=== PATIENT | male | born 1940 | race Caucasian/White ===

== ENCOUNTER 2017-04-25 12:48 | Inpatient (IN) | payer OTHER ==
[2017-04-25 14:11] LABS: ADD MAN DIFF? NO
[2017-04-25 14:21] LABS: BASOPHILS % 0.2 % (0.0-2.0); HEMATOCRIT 53.4 % (42.0-52.0); HEMOGLOBIN 19.5 g/dl (14.0-18.0); LYMPHOCYTES # 1.4 10^3/ul (0.8-2.9); LYMPHOCYTES % 9.6 % (15.0-51.0); MEAN CORPUSCULAR HEMOGLOBIN 32.7 pg (29.0-33.0); MEAN CORPUSCULAR HGB CONC 36.5 g/dl (32.0-37.0); MEAN CORPUSCULAR VOLUME 89.6 fl (82.0-101.0); MEAN PLATELET VOLUME 11.3 fl (7.4-10.4); MONOCYTE # 1.1 10^3/ul (0.3-0.9); MONOCYTES % 7.3 % (0.0-11.0); NEUTROPHILS % 82.6 % (39.0-77.0); PLATELET COUNT 282 10^3/UL (140-415); RED BLOOD COUNT 5.96 10^6/ul (4.70-6.10); RED CELL DISTRIBUTION WIDTH 13.4 % (11.5-14.5)
[2017-04-25 14:21] LABS: WHITE BLOOD COUNT 14.5 10^3/ul (4.8-10.8)
[2017-04-25 14:24] LABS: AADO2 Arterial 27.2 mmHg (7.0-24.0); Allen Test ACCEPTAB; Arterial Base Excess -2.5 mmol/L (-3.0-3); Arterial Blood Gas Oxygen Sat 94.4 mmHG (95.0-100.0); Arterial COHb 0.2 % (0.0-3.0); Arterial Fraction of Oxyhgb 93.8 % (93.0-99.0); Arterial HCO3 22.8 mmol/L (22.0-26.0); Arterial MetHb 0.4 % (0.0-1.5); Arterial pCO2 41.5 mmhg (35-45); MODE ROOM AIR; Site Right Radial
[2017-04-25] MEDS: SODIUM CHLORIDE 0.9% 1L BAG IV* (14:24)
[2017-04-25 14:41] LABS: PROTIME 12.2 Sec (11.9-14.9)
[2017-04-25] MEDS: IPRATROPIUM (NEB) 0.5 MG/2.5 ML AMP HHN (14:41)
[2017-04-25] MEDS: LEVALBUTEROL (NEB) 1.25 MG/0.5 ML AMP HHN (14:41)
[2017-04-25 14:44] LABS: ALANINE AMINOTRANSFERASE 78 IU/L (13-69); ALBUMIN 5.3 g/dl (3.3-4.9); ALBUMIN/GLOBULIN RATIO 1.47; ALKALINE PHOSPHATASE 109 IU/L (42-121); ANION GAP 30 (8-16); ASPARTATE AMINO TRANSFERASE 80 IU/L (15-46); BILIRUBIN,INDIRECT 0.3 mg/dl (0-1.1); BILIRUBIN,TOTAL 0.3 mg/dl (0.2-1.3); BLOOD UREA NITROGEN 61 mg/dl (7-20); CALCIUM 10.4 mg/dl (8.4-10.2); CARBON DIOXIDE 21 mmol/L (21-31); CHLORIDE 100 mmol/L (97-110); CREATININE 0.99 mg/dl (0.61-1.24); GLUCOSE 154 mg/dl (70-220); POTASSIUM 4.2 mmol/L (3.5-5.1); SODIUM 147 mmol/L (135-144); TOTAL PROTEIN 8.9 g/dl (6.1-8.1)
[2017-04-25 14:55] LABS: TROPONIN-I 0.015 ng/ml (0.00-0.12)
[2017-04-25 15:09] LABS: LACTIC ACID 2.1 mmol/L (0.5-2.0)
[2017-04-25 16:24] LABS: URINE BLOOD (Dip) POC 3+ (NEGATIVE); URINE GLUCOSE (Dip) POC Negative (NEGATIVE); URINE KETONES (Dip) POC 3+ (NEGATIVE); URINE LEUKOCYTE EST (Dip) POC Negative (NEGATIVE); URINE NITRITE (Dip) POC Negative (NEGATIVE); URINE TOTAL PROTEIN POC 2+ (NEGATIVE)
[2017-04-25 16:24] LABS: URINE PH (Dip) POC 5.5 (5.0-8.5)
[2017-04-25 16:57] LABS: LACTIC ACID 1.7 mmol/L (0.5-2.0)
[2017-04-25 17:03] LABS: ADD UMIC YES; UR ASCORBIC ACID NEGATIVE (NEGATIVE); UR BACTERIA FEW /HPF (NONE SEEN); UR BILIRUBIN (Dip) NEGATIVE (NEGATIVE); UR BLOOD (Dip) 3+ mg/dL (NEGATIVE); UR CLARITY CLEAR (CLEAR); UR COLOR YELLOW (YELLOW); UR GLUCOSE (Dip) NEGATIVE (NEGATIVE); UR KETONES (Dip) 2+ mg/dL (NEGATIVE); UR LEUKOCYTE ESTERASE (Dip) NEGATIVE Leu/ul (NEGATIVE); UR MUCUS FEW /HPF (NONE SEEN); UR NITRITE (Dip) NEGATIVE (NEGATIVE); UR RBC 79 /HPF (0-5); UR SPECIFIC GRAVITY (Dip) 1.021 (1.003-1.030); UR TOTAL PROTEIN (Dip) 2+ mg/dl (NEGATIVE); UR UROBILINOGEN (Dip) NEGATIVE (NEGATIVE); UR WBC 2 /HPF (0-5)
[2017-04-25] MEDS: SOD CHLORIDE 0.9% 100 ML (18:09)
[2017-04-25] MEDS: IOHEXOL 100 ML (18:09)
[2017-04-25] MEDS ORDERED: SOD CHLORIDE 0.45% 1,000 ML IV (19:56)
[2017-04-25] MEDS ORDERED: SOD CHLORIDE 0.9% 2,170 ML IV (20:00)
[2017-04-25] MEDS ORDERED: NACL 0.9% 3 ML SYG IV ×2 (20:00→23:30)
[2017-04-25] MEDS ORDERED: ACETAMINOPHEN 325 MG TAB PO ×2 (20:00→20:30)
[2017-04-25] MEDS ORDERED: ONDANSETRON 4 MG INJ IV ×2 (20:00→20:30)
[2017-04-25 20:15] LABS: CREATINE KINASE 417 IU/L (23-200)
[2017-04-25 20:28] LABS: CK INDEX 6.9; TROPONIN-I 0.023 ng/ml (0.00-0.12)
[2017-04-25] MEDS: LACTATED RINGER'S 500 ML IV (20:30)
[2017-04-25] MEDS: FAMOTIDINE 20 MG INJ IV (20:33)
[2017-04-25] MEDS: CEFEPIME 2GM/50 ML (PMX) 50 ML IVPB (20:35)
[2017-04-25 20:45] LABS: GAMMA GLUTAMYL TRANSPEPTIDASE 18 IU/L (0-50)
[2017-04-25] MEDS: TAMSULOSIN (SR) 0.4 MG CAP PO (20:53)
[2017-04-25] MEDS ORDERED: LORAZEPAM 2 MG INJ IV (21:00)
[2017-04-25] MEDS: MONTELUKAST 10 MG TAB PO (22:44)
[2017-04-25] MEDS: SALMETEROL/FLUTICASONE 250/50 INHA INH (22:44)
[2017-04-25] MEDS: QUETIAPINE 25 MG TAB PO (22:44)
[2017-04-25] MEDS: PIPER-TAZO 2.25 GM (PMX) 50 ML IVPB (23:34)
[2017-04-26] MEDS: AZITHROMYCIN 500MG/NS (PMX) 250 ML IVPB (00:34)
[2017-04-26 04:24] LABS: CREATINE KINASE 203 IU/L (23-200)
[2017-04-26 04:36] LABS: CK INDEX 7.2; TROPONIN-I 0.017 ng/ml (0.00-0.12)
[2017-04-26] MEDS: PIPER-TAZO 2.25 GM (PMX) 50 ML IVPB ×4 (06:08→21:50)
[2017-04-26 06:21] LABS: ADD MAN DIFF? NO
[2017-04-26 06:29] LABS: WHITE BLOOD COUNT 8.8 10^3/ul (4.8-10.8)
[2017-04-26 06:29] LABS: BASOPHILS % 0.2 % (0.0-2.0); EOSINOPHILS % 0.5 % (0.0-7.0); HEMATOCRIT 41.6 % (42.0-52.0); HEMOGLOBIN 14.8 g/dl (14.0-18.0); LYMPHOCYTES # 1.6 10^3/ul (0.8-2.9); LYMPHOCYTES % 17.8 % (15.0-51.0); MEAN CORPUSCULAR HEMOGLOBIN 31.9 pg (29.0-33.0); MEAN CORPUSCULAR HGB CONC 35.6 g/dl (32.0-37.0); MEAN CORPUSCULAR VOLUME 89.7 fl (82.0-101.0); MEAN PLATELET VOLUME 10.7 fl (7.4-10.4); MONOCYTE # 1.1 10^3/ul (0.3-0.9); MONOCYTES % 12.6 % (0.0-11.0); NEUTROPHILS % 68.7 % (39.0-77.0); PLATELET COUNT 183 10^3/UL (140-415); RED BLOOD COUNT 4.64 10^6/ul (4.70-6.10); RED CELL DISTRIBUTION WIDTH 13.1 % (11.5-14.5)
[2017-04-26 07:10] LABS: ALANINE AMINOTRANSFERASE 57 IU/L (13-69); ALBUMIN 3.6 g/dl (3.3-4.9); ALBUMIN/GLOBULIN RATIO 1.38; ALKALINE PHOSPHATASE 70 IU/L (42-121); ANION GAP 18 (8-16); ASPARTATE AMINO TRANSFERASE 54 IU/L (15-46); BILIRUBIN,INDIRECT 0.5 mg/dl (0-1.1); BILIRUBIN,TOTAL 0.5 mg/dl (0.2-1.3); BLOOD UREA NITROGEN 31 mg/dl (7-20); CALCIUM 9.1 mg/dl (8.4-10.2); CARBON DIOXIDE 27 mmol/L (21-31); CHLORIDE 108 mmol/L (97-110); CHOL/HDL RATIO 5.6 RATIO; CHOLESTEROL 209 mg/dl (100-200); CREATININE 0.69 mg/dl (0.61-1.24); GLUCOSE 92 mg/dl (70-220); HDL CHOLESTEROL 37 mg/dl (31-75); LDL CHOLESTEROL,CALCULATED 150 mg/dl; MAGNESIUM 1.6 mg/dl (1.7-2.5); POTASSIUM 3.5 mmol/L (3.5-5.1); SODIUM 149 mmol/L (135-144); TOTAL PROTEIN 6.2 g/dl (6.1-8.1); TRIGLYCERIDES 108 mg/dl (0-149)
[2017-04-26] MEDS: FINASTERIDE 5 MG TAB PO (08:24)
[2017-04-26] MEDS: QUETIAPINE 25 MG TAB PO ×2 (08:24→21:48)
[2017-04-26] MEDS: MULTIVITAMINS 10 ML, THIAMINE 100 MG, FOLIC ACID 1 MG in SOD CHLORIDE 0.9% 1,000 ML IVPB (08:24)
[2017-04-26] MEDS: SALMETEROL/FLUTICASONE 250/50 INHA INH ×2 (08:24→21:49)
[2017-04-26 08:25] LABS: LACTIC ACID 1.4 mmol/L (0.5-2.0)
[2017-04-26] MEDS: FAMOTIDINE 20 MG INJ IV ×2 (08:31→21:48)
[2017-04-26] MEDS: TAMSULOSIN (SR) 0.4 MG CAP PO ×2 (08:36→21:48)
[2017-04-26] MEDS: POTASSIUM CHLORIDE (SR) 20 MEQ TAB PO (15:58)
[2017-04-26] MEDS: MAGNESIUM SULFATE 4 GM/100 ML 100 ML IVPB (20:16)
[2017-04-26] MEDS: ENOXAPARIN 30 MG/0.3 ML SYG SC (21:52)
[2017-04-26] MEDS: MONTELUKAST 10 MG TAB PO (22:36)
[2017-04-27] MEDS: PIPER-TAZO 2.25 GM (PMX) 50 ML IVPB ×3 (05:16→21:43)
[2017-04-27] MEDS: ALBUTEROL/IPRATROPIUM (NEB) 3 ML AMP HHN (06:01)
[2017-04-27] MEDS: FAMOTIDINE 20 MG INJ IV ×2 (09:37→21:42)
[2017-04-27] MEDS: QUETIAPINE 25 MG TAB PO ×2 (09:37→21:42)
[2017-04-27] MEDS: TAMSULOSIN (SR) 0.4 MG CAP PO ×2 (09:37→21:42)
[2017-04-27] MEDS: FINASTERIDE 5 MG TAB PO (09:37)
[2017-04-27] MEDS: SALMETEROL/FLUTICASONE 250/50 INHA INH ×2 (09:38→21:42)
[2017-04-27] MEDS: ENOXAPARIN 30 MG/0.3 ML SYG SC (09:47)
[2017-04-27 10:05] LABS: ADD MAN DIFF? NO
[2017-04-27 10:13] LABS: WHITE BLOOD COUNT 5.5 10^3/ul (4.8-10.8)
[2017-04-27 10:13] LABS: BASOPHILS % 0.4 % (0.0-2.0); EOSINOPHILS # 0.1 10^3/ul (0.0-0.5); EOSINOPHILS % 1.3 % (0.0-7.0); HEMATOCRIT 36.8 % (42.0-52.0); HEMOGLOBIN 13.2 g/dl (14.0-18.0); LYMPHOCYTES # 1.3 10^3/ul (0.8-2.9); LYMPHOCYTES % 24.5 % (15.0-51.0); MEAN CORPUSCULAR HEMOGLOBIN 32.7 pg (29.0-33.0); MEAN CORPUSCULAR HGB CONC 35.9 g/dl (32.0-37.0); MEAN CORPUSCULAR VOLUME 91.1 fl (82.0-101.0); MEAN PLATELET VOLUME 11.5 fl (7.4-10.4); MONOCYTE # 0.6 10^3/ul (0.3-0.9); MONOCYTES % 10.6 % (0.0-11.0); NEUTROPHIL # 3.5 10^3/ul (1.6-7.5); PLATELET COUNT 141 10^3/UL (140-415); RED BLOOD COUNT 4.04 10^6/ul (4.70-6.10); RED CELL DISTRIBUTION WIDTH 13.2 % (11.5-14.5)
[2017-04-27 10:56] LABS: ANION GAP 15 (8-16); BLOOD UREA NITROGEN 14 mg/dl (7-20); CALCIUM 8.3 mg/dl (8.4-10.2); CARBON DIOXIDE 30 mmol/L (21-31); CHLORIDE 103 mmol/L (97-110); CREATININE 0.57 mg/dl (0.61-1.24); GLUCOSE 85 mg/dl (70-220); MAGNESIUM 1.8 mg/dl (1.7-2.5); SODIUM 145 mmol/L (135-144)
[2017-04-27] MEDS: MULTIVITAMINS 10 ML, THIAMINE 100 MG, FOLIC ACID 1 MG in SOD CHLORIDE 0.9% 1,000 ML IVPB (11:40)
[2017-04-27] MEDS: POTASSIUM CHLORIDE (SR) 20 MEQ TAB PO (15:12)
[2017-04-27] MEDS: MAGNESIUM OXIDE 400 MG TAB PO (17:01)
[2017-04-27] MEDS: MONTELUKAST 10 MG TAB PO (21:42)
[2017-04-28] MEDS: AMLODIPINE 5 MG TAB PO ×3 (01:00→21:35)
[2017-04-28] MEDS: QUETIAPINE 25 MG TAB PO ×3 (01:00→21:35)
[2017-04-28] MEDS: MAGNESIUM OXIDE 400 MG TAB PO ×3 (01:01→21:35)
[2017-04-28] MEDS: PIPER-TAZO 2.25 GM (PMX) 50 ML IVPB ×3 (05:15→21:38)
[2017-04-28] MEDS: SALMETEROL/FLUTICASONE 250/50 INHA INH (08:46)
[2017-04-28] MEDS: TAMSULOSIN (SR) 0.4 MG CAP PO ×2 (08:46→21:35)
[2017-04-28] MEDS: ENOXAPARIN 30 MG/0.3 ML SYG SC (08:48)
[2017-04-28 09:18] LABS: ADD MAN DIFF? NO
[2017-04-28 09:29] LABS: WHITE BLOOD COUNT 5.9 10^3/ul (4.8-10.8)
[2017-04-28 09:29] LABS: BASOPHILS % 0.5 % (0.0-2.0); EOSINOPHILS # 0.1 10^3/ul (0.0-0.5); EOSINOPHILS % 2.2 % (0.0-7.0); HEMATOCRIT 38.4 % (42.0-52.0); HEMOGLOBIN 13.6 g/dl (14.0-18.0); LYMPHOCYTES # 1.4 10^3/ul (0.8-2.9); LYMPHOCYTES % 24.4 % (15.0-51.0); MEAN CORPUSCULAR HEMOGLOBIN 32.2 pg (29.0-33.0); MEAN CORPUSCULAR HGB CONC 35.4 g/dl (32.0-37.0); MEAN CORPUSCULAR VOLUME 90.8 fl (82.0-101.0); MEAN PLATELET VOLUME 11.5 fl (7.4-10.4); MONOCYTE # 0.6 10^3/ul (0.3-0.9); MONOCYTES % 10.3 % (0.0-11.0); NEUTROPHIL # 3.7 10^3/ul (1.6-7.5); NEUTROPHILS % 62.4 % (39.0-77.0); PLATELET COUNT 151 10^3/UL (140-415); RED BLOOD COUNT 4.23 10^6/ul (4.70-6.10); RED CELL DISTRIBUTION WIDTH 13.2 % (11.5-14.5)
[2017-04-28] MEDS: FAMOTIDINE 20 MG INJ IV ×2 (09:34→21:35)
[2017-04-28] MEDS: MULTIVITAMINS 10 ML, THIAMINE 100 MG, FOLIC ACID 1 MG in SOD CHLORIDE 0.9% 1,000 ML IVPB (09:34)
[2017-04-28] MEDS: FINASTERIDE 5 MG TAB PO (09:34)
[2017-04-28 09:57] LABS: ANION GAP 13 (8-16); BLOOD UREA NITROGEN 11 mg/dl (7-20); CALCIUM 8.5 mg/dl (8.4-10.2); CARBON DIOXIDE 31 mmol/L (21-31); CHLORIDE 102 mmol/L (97-110); CREATININE 0.51 mg/dl (0.61-1.24); GLUCOSE 97 mg/dl (70-220); MAGNESIUM 1.5 mg/dl (1.7-2.5); PHOSPHORUS 2.3 mg/dl (2.5-4.9); POTASSIUM 3.4 mmol/L (3.5-5.1); SODIUM 143 mmol/L (135-144)
[2017-04-28] MEDS: predniSONE 20 MG TAB PO (13:11)
[2017-04-28] MEDS ORDERED: POTASSIUM CHLORIDE (SR) 20 MEQ TAB PO ×2 (18:27→19:00)
[2017-04-28] MEDS: MAGNESIUM SULFATE 4 GM/100 ML 100 ML IVPB (21:34)
[2017-04-28] MEDS: MONTELUKAST 10 MG TAB PO (21:35)
[2017-04-29] MEDS: SALMETEROL/FLUTICASONE 250/50 INHA INH ×2 (00:45→08:24)
[2017-04-29] MEDS: POTASSIUM CHLORIDE (SR) 20 MEQ TAB PO (00:46)
[2017-04-29] MEDS: PIPER-TAZO 2.25 GM (PMX) 50 ML IVPB (06:36)
[2017-04-29 07:50] LABS: ADD MAN DIFF? NO
[2017-04-29 07:57] LABS: BASOPHILS % 0.2 % (0.0-2.0); EOSINOPHILS % 0.8 % (0.0-7.0); HEMATOCRIT 39.8 % (42.0-52.0); HEMOGLOBIN 13.8 g/dl (14.0-18.0); LYMPHOCYTES # 1.3 10^3/ul (0.8-2.9); LYMPHOCYTES % 25.2 % (15.0-51.0); MEAN CORPUSCULAR HEMOGLOBIN 31.8 pg (29.0-33.0); MEAN CORPUSCULAR HGB CONC 34.7 g/dl (32.0-37.0); MEAN CORPUSCULAR VOLUME 91.7 fl (82.0-101.0); MEAN PLATELET VOLUME 11.5 fl (7.4-10.4); MONOCYTE # 0.5 10^3/ul (0.3-0.9); MONOCYTES % 10.7 % (0.0-11.0); NEUTROPHIL # 3.1 10^3/ul (1.6-7.5); NEUTROPHILS % 62.9 % (39.0-77.0); PLATELET COUNT 170 10^3/UL (140-415); RED BLOOD COUNT 4.34 10^6/ul (4.70-6.10); RED CELL DISTRIBUTION WIDTH 12.9 % (11.5-14.5)
[2017-04-29] MEDS: MULTIVITAMINS 10 ML, THIAMINE 100 MG, FOLIC ACID 1 MG in SOD CHLORIDE 0.9% 1,000 ML IVPB (08:24)
[2017-04-29] MEDS: FAMOTIDINE 20 MG INJ IV (08:24)
[2017-04-29] MEDS: QUETIAPINE 25 MG TAB PO (08:25)
[2017-04-29] MEDS: predniSONE 20 MG TAB PO (08:26)
[2017-04-29] MEDS: TAMSULOSIN (SR) 0.4 MG CAP PO (08:26)
[2017-04-29 08:27] LABS: ANION GAP 15 (8-16); BLOOD UREA NITROGEN 9 mg/dl (7-20); CARBON DIOXIDE 31 mmol/L (21-31); CHLORIDE 102 mmol/L (97-110); CREATININE 0.53 mg/dl (0.61-1.24); GLUCOSE 98 mg/dl (70-220); POTASSIUM 3.7 mmol/L (3.5-5.1); SODIUM 144 mmol/L (135-144)
[2017-04-29] MEDS: FINASTERIDE 5 MG TAB PO (08:27)
[2017-04-29] MEDS: AMLODIPINE 5 MG TAB PO (08:27)
[2017-04-29] MEDS: MAGNESIUM OXIDE 400 MG TAB PO (08:27)
[2017-04-29] MEDS: ENOXAPARIN 30 MG/0.3 ML SYG SC (08:37)
[2017-04-29 11:31] LABS: MAGNESIUM 2.1 mg/dl (1.7-2.5)
[2017-04-29 11:31] LABS: PHOSPHORUS 2.6 mg/dl (2.5-4.9)
[2017-04-29] MEDS ORDERED: SODIUM PHOSPHATE 20 MEQ in SOD CHLORIDE 0.9% 250 ML IVPB (12:00)
[2017-04-29] MEDS: POTASSIUM PHOSPHATE 20 MEQ in SOD CHLORIDE 0.9% 250 ML IV (12:47)
== END 2017-04-29 20:35 | DRG 865 ==
LOC: TEL 04-26 18:13 → MS4 20:10 → E/R 12:48
DX: B34.9 Viral infection, unspecified (principal); G93.41 Metabolic encephalopathy; R06.03 Acute respiratory distress; J44.1 Chronic obstructive pulmonary disease with (acute) exacerbation; N13.8 Other obstructive and reflux uropathy; E86.0 Dehydration; R33.9 Retention of urine, unspecified; N40.1 Benign prostatic hyperplasia with lower urinary tract symptoms; F03.90 Unspecified dementia, unspecified severity, without behavioral disturbance, psychotic disturbance, mood disturbance, and anxiety; K59.00 Constipation, unspecified; Z87.891 Personal history of nicotine dependence
CPT/HCPCS: 36415; 36600; 70450; 71045; 71275; 74177; 80048; 80053; 80061; 81001; 81003; 82550; 82553; 82803; 82962; 82977; 83605; 83735; 84100; 84484; 85025; 85610; 85730; 87040; 87086; 87400; 93005; 94660; 94664; 96365; 96366; 96367; 96375; 96376; 97162; 99291-25